=== PATIENT | male | born 1965 | race Caucasian/White ===

== ENCOUNTER → 2022-03-05 | Outpatient (CLI) | payer OTHER, SELFPAY ==
[2022-03-05 17:41] LABS: AST(SGOT) 20 U/L (15-37); Alanine Aminotransfer ALT/SGPT 35 U/L (16-61); Albumin, Serum 4.1 g/dL (3.2-5.0); Alkaline Phosphatase 53 U/L (45-117); Anion Gap 7 (5-15); BUN 13 mg/dL (7-18); BUN/Creat Ratio 14.8 RATIO (10-20); Bilirubin, Direct 0.19 mg/dL (0.00-0.30); Calcium,Total 8.8 mg/dL (8.5-10.1); Chloride 106 mmol/L (98-107); Cholesterol 240 mg/dL (200); Creatinine, Serum 0.88 mg/dL (0.70-1.30); EST Glomerular Filtration Rate 95 mL/min (>60); Est Glom Filt Rate - Afr Amer 114 mL/min (>60); Glucose 76 mg/dL (74-106); High Density Lipoprotein 52 mg/dL; Potassium 3.6 mmol/L (3.5-5.1); Protein, Total 7.1 g/dL (6.4-8.2); Sodium Level 138 mmol/L (136-145); Triglycerides 196 mg/dL; Very Low Density Lipoprotein 39 mg/dL (5-40)
== END | disposition home or self-care (01) ==
LOC: LAB 14:45
PROVIDERS: PCP Internal Medicine; Referring Provider Internal Medicine Cardiovascular Disease; Visit Provider Internal Medicine Cardiovascular Disease
DX: R07.9 Chest pain, unspecified (principal)
CPT/HCPCS: 36415; 80048; 80061; 80076

== ENCOUNTER → 2023-12-08 | Outpatient (CLI) | payer OTHER, SELFPAY ==
[2023-12-08 12:06] LABS: AST(SGOT) 18 U/L (15-37); Alanine Aminotransfer ALT/SGPT 29 U/L (16-61); Albumin, Serum 4.1 g/dL (3.2-5.0); Alkaline Phosphatase 60 U/L (45-117); Bilirubin, Direct 0.16 mg/dL (0.00-0.30); Cholesterol 184 mg/dL (200); High Density Lipoprotein 50 mg/dL; Protein, Total 7.1 g/dL (6.4-8.2); Triglycerides 110 mg/dL; Very Low Density Lipoprotein 22 mg/dL (5-40)
--- OUTSIDE RECORDS SUMMARY | 2023-12-08 13:22 | XMS RPT_ITS | CCD ---
Author Name Unknown Address [address] [facility] [address] [place] [id number] Organization [facility] Care Team Providers Care Tradeshow Worker Name Role Phone Aaron Singh Attending Unavailable Cheikh Del Toro Referring Unavailable No Doctor Assigned, [facility] Primary Care Unavail able Aaron Singh Admitting Unavailable MARY KATE, DR JOSIE Epps Attending Unavaila ble MARY KATE, DR JOSIE Epps Admitting Unavaila ble MARY KATE, DR JOSIE Epps Primary Care Unavaila ble MARY KATE, DR JOSIE Epps Attending Unavaila ble MARY KATE, DR JOSIE Epps Admitting Unavaila ble MARY KATE, DR JOSIE Epps Primary Care Unavaila ble Jamesyifan Hao M Unavailable Unavailable Unavailable Fatou Polk Unavailable Mohan Caballero Attending Unavailable Fatou Polk Primary Care Unavailable Mohan Caballero Attending Unavailable Mohan Caballero Referring Unavailable Fatou Polk Primary Care Unavailable Mohan Caballero Attending Unavailable Mohan Caballero Referring Unavailable Fatou Polk Primary Care Unavailable Fatou Polk Primary Care Unavailable MD MOHAN CABALLERO Attending Unavailable MD MOHAN CABALLERO Referring Unavailable Fatou Polk Primary Care Unavailable MD MOHAN CABALLERO Attending Unavailable MD MOHAN CABALLERO Referring Unavailable Medications Completed/Discontinued Medications Medication Drug Class(es) Dates Sig (Normalized) Sig (Original) carBAMazepine 200 mg oral tablet (6 sources) Mood Stabilizer Start: 01-06-2022 Epitol 200 MG Oral Tablet Quantity: 0 Refills: 0 Ordered: 06-Jan-2022 Fatou Polk DO Start : 06-Jan-2022 Active diclofenac sodium 0.01 mg/mg topical gel (5 sources) Nonsteroidal Anti-inflammatory Drug Start: 01-27-2023 Diclofenac Sodium 1 % External Gel APPLY 2 GM 3 times daily PRN as needed for pain do not apply more than 8 grams per day Quantity: 1 Refills: 0 Ordered: 30-Jan-2023 Mohan Caballero MD Start : 27-Jan-2023 Active hydrOXYzine hydrochloride 25 mg oral tablet (12 sources) Antihistamine Start: 01-01-2022 take 1 tablet by mouth once daily hydrOXYzine HCl - 25 MG Oral Tablet 1 tablet daily Quantity: 0 Refills: 0 Ordered: 01-Jan-2022 Fatou Polk DO Start : 01-Jan-2022 Active Problems Problem Classification Problem Date Documented Da te Episodic/Chronic Mood disorders (7 sources) Bipolar disorder, most recent episode depression; Translations: [Bipolar I disorder, most recent episode (or current) depressed, unspecified] Chronic Osteoarthritis (1 source) Primary osteoarthritis, left shoulder; Translations: [Primary osteoarthritis, left shoulder] Onset: 03-03-2023 Chronic Other aftercare (6 sources) Drug therapy finding; Translations: [Long-term (current) use of other medications] Episodic Other non-traumatic joint disorders (4 sources) Shoulder pain; Translations: [Pain in joint, shoulder region] Episodic Other non-traumatic joint disorders (5 sources) Pain in left shoulder; Translations: [Shoulder pain, left] Onset: 03-03-2023 Episodic Other nutritional; endocrine; and metabolic disorders (6 sources) Overweight in adulthood with body mass index of 25 or more but less than 30; Translations: [Overweight] Episodic Other screening for suspected conditions (not mental disorders or infectious disease) (12 sources) Patient encounter status; Translations: [Screening for lipoid disorders] Episodic Spondylosis; intervertebral disc disorders; other back problems (2 sources) Other cervical disc degeneration at C5-C6 level; Translations: [Spondylosis without myelopathy or radiculopathy, cervical region] Onset: 03-03-2023 Chronic Results Test Name Value Interpretation Reference Range Facil ity Vital Signs Date Time Vital Sign Value Performing Clinician Facility 03-05-2023 13:03-0400 Body mass index (BMI) [Ratio] 26 kg/m2 Faotu Polk Work Phone: [facility] Work Phone: 03-05-2023 13:03-0400 Body surface area Derived from formula 1.87 m2 Fatou L Oberhauser Work Phone: [facility] [address] Work Phone: 03-05-2023 13:03-0400 Body temperature 97.7 [degF] Fatou L Oberhauser Work Phone: [facility] 300 Work Phone: 03-05-2023 13:03-0400 Body weight 75.3 kg Fatou L Oberhauser Work Phone: [facility] 300 Work Phone: 01-27-2023 14:24-0400 Body mass index (BMI) [Ratio] 26.31 kg/m2 Fatou L Oberhauser Work Phone: [facility] 300 Work Phone: 01-27-2023 14:24-0400 Body surface area Derived from formula 1.88 m2 Fatou L Oberhauser Work Phone: [facility] 300 Work Phone: 01-27-2023 14:24-0400 Body temperature 97.1 [degF] Fatou L Oberhauser Work Phone: [facility] 300 Work Phone: 01-27-2023 14:24-0400 Body weight 76.2 kg Fatou L Oberhauser Work Phone: [facility] 300 Work Phone: 01-06-2022 11:24-0500 Body height 170.18 cm Hao Tanner Kenneth Work Phone: [facility] Work Phone: 01-06-2022 11:24-0500 Body mass index (BMI) [Ratio] 25.53 kg/m2 Hao Cooper Work Phone: [facility] Work Phone: 01-06-2022 11:24-0500 Body surface area Derived from formula 1.85 m2 Hao Cooper Work Phone: [facility] Work Phone: 01-06-2022 11:24-0500 Body temperature 97.6 [degF] Hao Cooper Work Phone: [facility] Work Phone: 01-06-2022 11:24-0500 Body weight 73.94 kg Hao Cooper Work Phone: [facility] Work Phone: 01-06-2022 11:24-0500 Diastolic blood pressure 85 mm[Hg] Hao Cooper Work Phone: [facility] Work Phone: 01-06-2022 11:24-0500 Heart rate 95 /min Hao Cooper Work Phone: [facility] Work Phone: 01-06-2022 11:24-0500 Systolic blood pressure 132 mm[Hg] Hao Cooper Work Phone: [facility] Work Phone: 01-01-2022 13:25-0500 Body height 170.18 cm Hao Cooper Work Phone: [facility] Work Phone: 01-01-2022 13:25-0500 Body mass index (BMI) [Ratio] 26.88 kg/m2 Hao M Newbill Work Phone: [facility] Work Phone: 01-01-2022 13:25-0500 Body surface area Derived from formula 1.89 m2 Hao Cooper Work Phone: [facility] Work Phone: 01-01-2022 13:25-0500 Body temperature 98.6 [degF] Hao Cooper Work Phone: [facility] Work Phone: 01-01-2022 13:25-0500 Body weight 77.84 kg Hao Cooper Work Phone: [facility] Work Phone: 01-01-2022 13:25-0500 Diastolic blood pressure 81 mm[Hg] Hao Cooper Work Phone: [facility] Work Phone: 01-01-2022 13:25-0500 Heart rate 93 /min Hao Cooper Work Phone: [facility] Work Phone: 01-01-2022 13:25-0500 SaO2% (BldA) [Mass fraction] 97 % Hao Cooper Work Phone: [facility] Work Phone: 01-01-2022 13:25-0500 Systolic blood pressure 135 mm[Hg] Hao Cooper Work Phone: [facility] Work Phone: Encounters Encounter Date Encounter Type Care Provider Facility Start: 07-31-2023 Patient encounter procedure [facility] Start: 03-06-2023 Chart Update Fatou L Oberha user Work Phone: [facility] 300 Work Phone: Start: 03-05-2023 ambulatory Fatou Polk Facili ty:[id number] Start: 03-03-2023 ambulatory Mohan Leb Facility:[id number] Start: 02-20-2023 Patient encounter procedure [facility] Work Phone: Start: 02-20-2023 ambulatory Mohan Leb Facility:[id number] Start: 02-06-2023 Patient encounter procedure [facility] Polk [facility] Work Phone: Start: 02-06-2023 ambulatory Mohan Leb Facility:[id number] Start: 01-27-2023 Office outpatient ne w 60 minutes Fatou Polk Work Phone: [facility] 300 Work Phone: Start: 01-27-2023 ambulatory Fatou Wymaner Facili ty:[id number] Start: 01-06-2022 Initial preventive medicine new patient 40-64yrs Hao Cooper Work Phone: [facility] Work Phone: Start: 01-01-2022 Patient encounter procedure Hao Cooper Work Phone: [facility] Work Phone: Start: 03-07-2021 End: 03-07-[address] JOSIE HARTMANN [facility] Start: 02-14-2021 End: 02-14-[address] JOSIE HARTMANN [facility] Start: 12-16-2018 Patient encounter procedure Aaron Singh Facility:[facility] Procedures Date Procedure Procedure Detail Performing Clinician Vasectomy Hao Cooper Work Phone: Plan of Treatment Date Care Activity Detail Author Start: 05-12-2023 FUV, Provider: Mohan Caballero, Status: Pen, Time: 1:00 PM FUV, Provider: Mohan Caballero, Status: Pen, Time: 1:00 PM [facility] [address] Work Phone: Start: 03-03-2023 FUV, Provider: Mohan Caballero, Status: Pen, Time: 11:00 AM FUV, Provider: Mohan Caballero, Status: Pen, Time: 11:00 AM [facility] [address] Work Phone: Start: 02-20-2023 PTFUADULT4, Provider : Nanda Shea, Status: Pen, Time: 3:30 PM PTFUADULT4, Provider: Nanda Shea, Status: Pen, Time: 3:30 PM [facility] Work Phone: Start: 02-06-2023 PTEVAADULT, Provider : Roque Bennett, Status: Pen, Time: 1:45 PM PTEVAADULT, Provider: Roque Bennett, Status: Pen, Time: 1:45 PM [facility] 300 Work Phone: Start: 01-12-2023 FUV, Provider: Fatou Polk, Status: Pen, Time: 11:00 AM FUV, Provider: Fatou Polk, Status: Pen, Time: 11:00 AM [facility] Work Phone: Start: 01-06-2022 NPV, Provider: Fatou Polk, Status: Pen, Time: 11:40 AM NPV, Provider: Fatou Polk, Status: Pen, Time: 11:40 AM [facility] Work Phone: Payers Date Payer Category Payer Unknown 1965 Unknown [id number] [id number] [id number] 1965 Unknown [id number] [id number] 1965 Unknown [id number] [id number] [id number] 1963 Unknown [id number] 2.16.8 [id number] 1963 Unknown [id number] [id number]. [id number] 1965 Unknown [id number] [id number]. [id number] Unknown [id number] Social History Date Type Detail Facility Patient ingests cola containing caffeine Patient ingests cola containing caffeine [facility] Work Phone: History of Present illness Narrative Note Date & Type Note Facility History of Present illness Narrative Patient is a 56 y.o. 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 Comes in today for evaluation of his left arm pain. Past medical history is significant for bipolar depression. He states that he also worked at a [employer]. He has had about a 6-month history of soreness in his shoulder. Overhead lifting aggravates it. He attributes it to potentially the third or fourth COVID injection that he got. I explained that those injections are not likely to have caused his problem. [facility] [address] Work Phone: History of Present illness Narrative Note Date & Type Note Facility History of Present illness Narrative This patient has had C/C sx for about 1yr. No recent testing has been done but the shldr was injected 1wk ago and has since felt better. The patient associates original sx with Covid injections. Physical finding include limited A+PROM with mild endrange elevation discomfort. There is only slight to mild Er strength weakness with discomfort. PT will continue with mobs and PROM to AROM as carol. Only ER strength is mildly limited at this time.Clinical Presentation: Stable and/or uncomplicated characteristics.Level of Complexity: lowProblem List: activity limitations, ADLs/IADLs/self care skills, decreased functional level, decreased knowledge of HEP, decreased knowledge of precautions, pain, range of motion/joint mobility and strength. [facility] Work Phone: Reason for visit Narrative Note Date & Type Note Facility Reason for visit Narrative Initial Evalu ation . L shldr pain.Referred by: Federico [facility] Work Phone: Summary Purpose Family History Unknown Family Member Name Dates Details Family history of hypertensi on: Mother(V17.49, Z82.49) Status:Active Family history of thyroid di sease: Mother(V18.19, Z83.49) Status:Active Family history of malignant neoplasm of prostate: Father(V16.42, Z80.42) Status:Active Family history of blood dysc rasia: Father(V18.3, Z83.2) Status:Active Bipolar disease, chronic: Br other Status:Active Unknown Family Member Name Dates Details Family history of hypertensi on: Mother(V17.49, Z82.49) Status:Active Family history of thyroid di sease: Mother(V18.19, Z83.49) Status:Active Family history of malignant neoplasm of prostate: Father(V16.42, Z80.42) Status:Active Family history of blood dysc rasia: Father(V18.3, Z83.2) Status:Active Bipolar disease, chronic: Br other Status:Active Unknown Family Member Name Dates Details Family history of hypertensi on: Mother(V17.49, Z82.49) Status:Active Family history of thyroid di sease: Mother(V18.19, Z83.49) Status:Active Family history of malignant neoplasm of prostate: Father(V16.42, Z80.42) Status:Active Family history of blood dysc rasia: Father(V18.3, Z83.2) Status:Active Bipolar disease, chronic: Br other Status:Active Unknown Family Member Name Dates Details Family history of hypertensi on: Mother(V17.49, Z82.49) Status:Active Family history of thyroid di sease: Mother(V18.19, Z83.49) Status:Active Family history of malignant neoplasm of prostate: Father(V16.42, Z80.42) Status:Active Family history of blood dysc rasia: Father(V18.3, Z83.2) Status:Active Bipolar disease, chronic: Br other Status:Active Unknown Family Member Name Dates Details Family history of hypertensi on: Mother(V17.49, Z82.49) Status:Active Family history of thyroid di sease: Mother(V18.19, Z83.49) Status:Active Family history of malignant neoplasm of prostate: Father(V16.42, Z80.42) Status:Active Family history of blood dysc rasia: Father(V18.3, Z83.2) Status:Active Bipolar disease, chronic: Br other Status:Active Unknown Family Member Name Dates Details Family history of hypertensi on: Mother(V17.49, Z82.49) Status:Active Family history of thyroid di sease: Mother(V18.19, Z83.49) Status:Active Family history of malignant neoplasm of prostate: Father(V16.42, Z80.42) Status:Active Family history of blood dysc rasia: Father(V18.3, Z83.2) Status:Active Bipolar disease, chronic: Br other Status:Active Unknown Family Member Name Dates Details Family history of hypertensi on: Mother(V17.49, Z82.49) Status:Active Family history of thyroid di sease: Mother(V18.19, Z83.49) Status:Active Family history of malignant neoplasm of prostate: Father(V16.42, Z80.42) Status:Active Family history of blood dysc rasia: Father(V18.3, Z83.2) Status:Active Bipolar disease, chronic: Br other Status:Active Advance Directives No Advanced Directives Records FoundNo Advanced Directives Records FoundNo Advanced Directives Records FoundNo Advanced Directives Records FoundNo Advanced Directives Records Found Chief Complaint * 56 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 * covid shots prompted the pain Additional Source Comments (unrecognized sect ion and content) No Status Records FoundNo Status Records FoundNo Status Records FoundNo Status Records FoundNo Status Records Found INFORMATION SOURCE (unrecogn ized section and content) DATE CREATED AUTHOR AUTHOR'S ORGANIZ ATION 03/10/2021 [facility] DATE CREATED AUTHOR AUTHOR'S ORGANIZ ATION 03/06/2023 [facility] DATE CREATED AUTHOR AUTHOR'S ORGANIZ ATION 03/08/2023 [facility] [place] DATE CREATED AUTHOR AUTHOR'S ORGANIZ ATION 03/08/2023 [employer] FOR RECORDS PERTAINING TO PATIENTS WHO ARE OR HAVE BEEN ENROLLED IN A CHEMICAL DEPENDENCY/SUBSTANCEABUSE PROGRAM, SOME INFORMATION MAY BE OMITTED. This clinical summary was aggregated from multiple sources. Caution should be exercised in using it in the provision of clinical care. This summary normalizes information from multiple sources, and as a consequence, information in this document may materially change the coding, format and clinical context of patient data. In addition, data may be omitted in some cases. CLINICAL DECISIONS SHOULD BE BASED ON THE PRIMARY CLINICAL RECORDS. [employer] provides no warranty or guarantee of the accuracy or completeness of information in this document.
[2023-12-08 13:54] LABS: Anion Gap 5 (5-15); BUN 15 mg/dL (7-18); BUN/Creat Ratio 16.4 RATIO (10-20); Calcium,Total 8.9 mg/dL (8.5-10.1); Chloride 110 mmol/L (98-107); Creatinine, Serum 0.92 mg/dL (0.70-1.30); EST Glomerular Filtration Rate 90 mL/min (>60); Est Glom Filt Rate - Afr Amer 109 mL/min (>60); Glucose 94 mg/dL (74-106); Sodium Level 137 mmol/L (136-145)
== END | disposition home or self-care (01) ==
LOC: LAB 10:51
PROVIDERS: Internal Medicine Cardiovascular Disease; PCP Internal Medicine; Referring Provider Nurse Practitioner Gerontology; Visit Provider Nurse Practitioner Gerontology
DX: E78.00 Pure hypercholesterolemia, unspecified (principal); R07.9 Chest pain, unspecified
CPT/HCPCS: 36415; 80048; 80061; 80076